=== PATIENT | female | born 1965 | race Caucasian/White ===

== ENCOUNTER 2025-07-05 07:34 | Day surgery (SDC) | payer MEDICAID ==
[2025-06-30 15:41] LABS: Absolute Lymphocytes (CBC) 1.7 K/uL (0.7-4.9); Hematocrit 43.9 % (36.0-45.0); Hemoglobin 14.8 g/dL (12.0-15.0); MCH 31.8 pg (27.0-35.0); MCHC 33.7 g/dL (32.0-36.0); MCV 94.2 fL (80-100); MPV 7.8 fL (7.6-11.3); Nucleated RBC Absolute Count 0.0 (0-0); Nucleated Red Blood Cells % 0.2 % (0-0); RBC Red Blood Cell Count 4.66 M/uL (3.86-4.86); White Blood Count 4.80 thou/uL (4.3-10.9)
[2025-06-30 16:05] LABS: Anion Gap 6.4 mEq/L (5.0-15.0); BUN Blood Urea Nitrogen 7.0 mg/dL (7-18); Glucose Level 91.0 mg/dL (74-106); Potassium 3.4 mEq/L (3.5-5.1)
[2025-07-05] MEDS: Ringers Lactate 1,000 ML IV ONE (08:10)
[2025-07-05] MEDS ORDERED: LIDOCAINE 1% MPF 5 ML VIAL ONE (09:13)
[2025-07-05 10:50] VITALS: BP 109/63; TEMP 97.5; O2SAT 95
== END 2025-07-05 10:16 | disposition home or self-care (01) ==
LOC: OR 07:34
PROVIDERS: ATTEND Internal Medicine Gastroenterology
PROC: 0DB68ZX Excision of Stomach, Via Natural or Artificial Opening Endoscopic, Diagnostic (ICD-10-PCS; principal; 2025-07-05 09:00)
DX: R10.12 Left upper quadrant pain (principal); K21.9 Gastro-esophageal reflux disease without esophagitis; R11.0 Nausea; R10.13 Epigastric pain; K74.60 Unspecified cirrhosis of liver; K44.9 Diaphragmatic hernia without obstruction or gangrene; K29.50 Unspecified chronic gastritis without bleeding; K20.90 Esophagitis, unspecified without bleeding
CPT/HCPCS: 85025; 80048; 36415; 88312; 88305; 43239; J2704; J2003; J7120